=== PATIENT | female | born 1985 | race Hispanic/Latino ===

== ENCOUNTER 2019-02-19 15:08 | Inpatient (IN) | payer BC ==
--- NOTE | 2019-02-19 15:17 | Emergency Department Report ---
Blank Doc - Documentation Documentation: This is a 33-year-old female that presents with right upper abdominal pain with radiation to back. PCP sent patient to ED for further evaluation and was diagnosed with gallstones. This initial assessment/diagnostic orders/clinical plan/treatment(s) is/are subject to change based on patient's health status, clinical progression and re- assessment by fellow clinical providers in the ED. Further treatment and workup at subsequent clinical providers discretion. Patient/guardians urged not to elope from the ED as their condition may be serious if not clinically assessed and managed. Initial orders include: 1- Patient sent to MAIN ED for further evaluation and treatment 2- labs 3- UA
[2019-02-19 15:49] LABS: Basophils # (Auto) 0.1 K/mm3 (0.0-0.1); Basophils % (Auto) 0.5 % (0.0-1.8); Eosinophils # (Auto) 0.2 K/mm3 (0.0-0.4); Eosinophils % (Auto) 1.7 % (0.0-4.3); Hemoglobin 14.8 gm/dl (10.1-14.3); Lymphocytes # (Auto) 1.2 K/mm3 (1.2-5.4); Mean Corpuscular HGB Conc 35 % (30-34); Mean Corpuscular Volume 88 fl (79-97); Monocytes # (Auto) 0.8 K/mm3 (0.0-0.8); Monocytes % (Auto) 7.9 % (0.0-7.3); Platelet Count 329 K/mm3 (140-440); Red Blood Count 4.75 M/mm3 (3.65-5.03); Red Cell Distribution Width 12.9 % (13.2-15.2)
[2019-02-19 15:53] LABS: Alanine Aminotransferase 432 units/L (7-56); Albumin 4.5 g/dL (3.9-5); BUN/Creatinine Ratio 14; Bilirubin,Direct 4.7 mg/dL (0-0.2); Blood Urea Nitrogen 10 mg/dL (7-17); Calcium 9.3 mg/dL (8.4-10.2); Hemolysis Index 4
[2019-02-19] MEDS ORDERED: MORPHINE IV ONE (16:41)
[2019-02-19] MEDS ORDERED: ZOFRAN IV ONE (16:41)
[2019-02-19] MEDS ORDERED: NACL 0.9% 1000 ML 1,000 ML IV ONE (16:41)
[2019-02-19] MEDS ORDERED: ZOSYN/NS 4.5GM/100ML 4.5 GM/100 ML VIAL IV ONE (16:53)
--- NOTE | 2019-02-19 16:56 | Emergency Department Report ---
ED General Adult HPI - General Chief complaint: Abdominal Pain Stated complaint: GALLSTONES/GALLBLADDER Time Seen by Provider: 02/19/19 15:15 Source: patient Mode of arrival: Ambulatory Limitations: No Limitations - History of Present Illness Initial comments: Patient presents to the emergency department with a chief complaint of right upper quadrant abdominal pain with outpatient ultrasound showing acute cholecystitis and a dilated common bile duct. Patient states her pain initially started approximately 2 weeks ago and she went to another hospital where she was worked up for chest pain and discharged home. She followed up with her primary care physician which resulted in the ultrasound today. -: Sudden Location: abdomen Radiation: back Severity scale (0 -10): 8 Quality: sharp Consistency: constant Improves with: none Worsens with: none Associated Symptoms: denies other symptoms (a call) Treatments Prior to Arrival: none ( to light.) - Related Data Allergies Allergy/AdvReac Type Severity Reaction Status Date / Time No Known Allergies Allergy Unverified 02/19/19 16:49 ED Review of Systems ROS: Stated complaint: GALLSTONES/GALLBLADDER Other details as noted in HPI Comment: All other systems reviewed and negative Constitutional: denies: chills, fever Eyes: denies: eye pain, eye discharge, vision change ENT: denies: ear pain, throat pain Respiratory: denies: cough, shortness of breath, wheezing Cardiovascular: denies: chest pain, palpitations Endocrine: no symptoms reported Gastrointestinal: abdominal pain. denies: nausea, diarrhea Genitourinary: denies: urgency, dysuria, discharge Musculoskeletal: denies: back pain, joint swelling, arthralgia Skin: denies: rash, lesions Neurological: denies: headache, weakness, paresthesias Psychiatric: denies: anxiety, depression Hematological/Lymphatic: denies: easy bleeding, easy bruising ED Past Medical Hx - Social History Smoking Status: Never Smoker Substance Use Type: None ED Physical Exam - General Limitations: No Limitations General appearance: alert, in no apparent distress - Head Head exam: Present: atraumatic, normocephalic - Eye Eye exam: Present: normal appearance, PERRL, EOMI - ENT ENT exam: Present: mucous membranes moist - Neck Neck exam: Present: normal inspection - Respiratory Respiratory exam: Present: normal lung sounds bilaterally. Absent: respiratory distress, wheezes, rales - Cardiovascular Cardiovascular Exam: Present: regular rate, normal rhythm. Absent: systolic murmur, diastolic murmur, rubs, gallop - GI/Abdominal GI/Abdominal exam: Present: soft, tenderness (TTP RUQ), normal bowel sounds. Absent: distended - Extremities Exam Extremities exam: Present: normal inspection - Back Exam Back exam: Present: normal inspection - Neurological Exam Neurological exam: Present: alert, oriented X3, CN II-XII intact. Absent: motor sensory deficit - Psychiatric Psychiatric exam: Present: normal affect, normal mood - Skin Skin exam: Present: warm, dry, intact, normal color. Absent: rash ED Course Vital Signs 02/19/19 02/19/19 15:15 17:22 Temperature 98.1 F Pulse Rate 93 H 88 Respiratory 18 18 Rate Blood Pressure 137/87 Blood Pressure 141/91 [Left] O2 Sat by Pulse 98 99 Oximetry ED Medical Decision Making - Lab Data Result diagrams: 02/19/19 15:24 02/19/19 15:24 Lab Results 02/19/19 02/19/19 02/19/19 Range/Units 15:24 15:24 15:24 WBC 10.3 (4.5-11.0) K/mm3 RBC 4.75 (3.65-5.03) M/mm3 Hgb 14.8 H (10.1-14.3) gm/dl Hct 42.0 (30.3-42.9) % MCV 88 (79-97) fl MCH 31 (28-32) pg MCHC 35 H (30-34) % RDW 12.9 L (13.2-15.2) % Plt Count 329 (140-440) K/mm3 Lymph % (Auto) 12.0 L (13.4-35.0) % [place] % (Auto) 7.9 H (0.0-7.3) % Eos % (Auto) 1.7 (0.0-4.3) % Baso % (Auto) 0.5 (0.0-1.8) % Lymph # 1.2 (1.2-5.4) K/mm3 [place] # 0.8 (0.0-0.8) K/mm3 Eos # 0.2 (0.0-0.4) K/mm3 Baso # 0.1 (0.0-0.1) K/mm3 Seg Neutrophils % 77.9 H (40.0-70.0) % Seg Neutrophils # 8.0 H (1.8-7.7) K/mm3 Sodium 138 (137-145) mmol/L Potassium 3.9 (3.6-5.0) mmol/L Chloride 100.2 (98-107) mmol/L Carbon Dioxide 23 (22-30) mmol/L Anion Gap 19 mmol/L BUN 10 (7-17) mg/dL Creatinine 0.7 (0.7-1.2) mg/dL Estimated GFR > 60 ml/min BUN/Creatinine Ratio 14 % Glucose 131 H (65-100) mg/dL Calcium 9.3 (8.4-10.2) mg/dL Total Bilirubin 5.80 H (0.1-1.2) mg/dL Direct Bilirubin 4.7 H (0-0.2) mg/dL Indirect Bilirubin 1.1 mg/dL AST 177 H (5-40) units/L ALT 432 H (7-56) units/L Alkaline Phosphatase 252 H (35-129) units/L Total Protein 7.9 (6.3-8.2) g/dL Albumin 4.5 (3.9-5) g/dL Albumin/Globulin Ratio 1.3 % Lipase 36 (13-60) units/L HCG, Qual Negative (Negative) - Radiology Data Radiology results: report reviewed - Medical Decision Making Received ultrasound result from [facility] and this shows acute cholecystitis and dilatation of the common bile duct Results discussed with patient Critical Care Time: Yes Critical care time in (mins) excluding proc time.: 35 Critical care attestation.: If time is entered above; I have spent that time in minutes in the direct care of this critically ill patient, excluding procedure time. ED Disposition Clinical Impression: Cholecystitis, Common bile duct dilatation Disposition: OP ADMIT IP TO THIS HOSP Is pt being admited?: Yes Does the pt Need Aspirin: No Condition: Fair Referrals: ANSHUL MICHAUD MD [Primary Care Provider] - 3-5 Days
[2019-02-19] MEDS ORDERED: SODIUM CHLORIDE FLUSH SYRINGE 10 ML IV PRN (20:09)
--- NOTE | 2019-02-19 20:10 | Consultation ---
History of Present Illness Consult date: 02/19/19 Reason for consult: gallstones - History of present illness History of present illness: 33 yo female with 12 day h/o epigastric pain radiating to the right shoulder associated with nausea and vomiting but no hematemesis, melena or hematochezia. Yesterday, she began noticing scleral icterus and has not been able to keep anything down. Her urine has been dark for 4 days. She denies prior abominal surgery, fever or chills. Medications and Allergies Allergies Allergy/AdvReac Type Severity Reaction Status Date / Time No Known Allergies Allergy Unverified 02/19/19 16:49 Home Medications Medication Instructions Recorded Confirmed Last Taken Type No Known Home Medications [No 02/19/19 02/19/19 Unknown History Reported Home Medications] Review of Systems All systems: negative (none) Exam Vital Signs Temp Pulse Resp BP Pulse Ox 98.1 F 93 H 18 137/87 98 02/19/19 15:15 02/19/19 15:15 02/19/19 15:15 02/19/19 15:15 02/19/19 15:15 - General physical appearance Positive: well developed, well nourished, no distress - Eyes Positive: PERRL, normal occular movement - ENT Positive: normal pinna, normal nares, normal mucosa, no hearing loss, no conge stion - Neck Positive: no masses, no bruits, trachea midline, no venous distension - Respiratory Positive: normal expansion, normal respiratory effort, clear to auscultation - Cardiovascular Rhythm: regular Heart Sounds: Present: S1 & S2. Absent: rub, click - Extremities Extremities: no ischemia, pulses symmetrical, No edema - Breasts Breasts: deferred - Abdomen Abdomen: Present: soft (Mild RUQ tenderness without rebound or guarding. No masses, HSM or hernias.) - Genitourinary Female Genitourinary: deferred - Integumentary no rash, no growths, no abnormal pigmentation - Neurologic Neurologic: alert and oriented to time, place and person, motor strength and sensation are grossly intact - Musculoskeletal normal gait, normal posture - Psychiatric Psychiatric: appropriate mood/affect, intact judgment & insight Results - Labs 02/19/19 15:24 02/19/19 15:24 Abnormal lab results 02/19/19 02/19/19 Range/Units 15:24 15:24 Hgb 14.8 H (10.1-14.3) gm/dl MCHC 35 H (30-34) % RDW 12.9 L (13.2-15.2) % Lymph % (Auto) 12.0 L (13.4-35.0) % [place] % (Auto) 7.9 H (0.0-7.3) % Seg Neutrophils % 77.9 H (40.0-70.0) % Seg Neutrophils # 8.0 H (1.8-7.7) K/mm3 Glucose 131 H (65-100) mg/dL Total Bilirubin 5.80 H (0.1-1.2) mg/dL Direct Bilirubin 4.7 H (0-0.2) mg/dL AST 177 H (5-40) units/L ALT 432 H (7-56) units/L Alkaline Phosphatase 252 H (35-129) units/L Diabetes panel 02/19/19 Range/Units 15:24 Sodium 138 (137-145) mmol/L Potassium 3.9 (3.6-5.0) mmol/L Chloride 100.2 (98-107) mmol/L Carbon Dioxide 23 (22-30) mmol/L BUN 10 (7-17) mg/dL Creatinine 0.7 (0.7-1.2) mg/dL Glucose 131 H (65-100) mg/dL Calcium 9.3 (8.4-10.2) mg/dL AST 177 H (5-40) units/L ALT 432 H (7-56) units/L Alkaline Phosphatase 252 H (35-129) units/L Total Protein 7.9 (6.3-8.2) g/dL Albumin 4.5 (3.9-5) g/dL Calcium panel 02/19/19 Range/Units 15:24 Calcium 9.3 (8.4-10.2) mg/dL Albumin 4.5 (3.9-5) g/dL Pituitary panel 02/19/19 Range/Units 15:24 Sodium 138 (137-145) mmol/L Potassium 3.9 (3.6-5.0) mmol/L Chloride 100.2 (98-107) mmol/L Carbon Dioxide 23 (22-30) mmol/L BUN 10 (7-17) mg/dL Creatinine 0.7 (0.7-1.2) mg/dL Glucose 131 H (65-100) mg/dL Calcium 9.3 (8.4-10.2) mg/dL Adrenal panel 02/19/19 Range/Units 15:24 Sodium 138 (137-145) mmol/L Potassium 3.9 (3.6-5.0) mmol/L Chloride 100.2 (98-107) mmol/L Carbon Dioxide 23 (22-30) mmol/L BUN 10 (7-17) mg/dL Creatinine 0.7 (0.7-1.2) mg/dL Glucose 131 H (65-100) mg/dL Calcium 9.3 (8.4-10.2) mg/dL Total Bilirubin 5.80 H (0.1-1.2) mg/dL AST 177 H (5-40) units/L ALT 432 H (7-56) units/L Alkaline Phosphatase 252 H (35-129) units/L Total Protein 7.9 (6.3-8.2) g/dL Albumin 4.5 (3.9-5) g/dL - Imaging Additional studies: RUQ US today revealed: Gallbladder wall thickening with multiple gallstones and a 10 mm CBD. See CMP of today. CMP on 02/10/19 revealed: ALT 36, AST 18, T bili 0.4; LFT on 02/18/19 revealed: Alk phos 244, ALT 551, AST 433, D bili 3.59, T bili 4.8 Assessment and Plan - Patient Problems (1) Cholecystitis Current Visit: Yes Status: Acute Plan to address problem: 1) NPO 2) IV Zosyn 3) MRCP tomorrow 4) GI consult re probable choledocholithiasis 5) SCD 6) Prophylactic Lovenox/Heparin 7) IVF
--- NOTE | 2019-02-19 20:13 | History and Physical Report ---
History of Present Illness Date of examination: 02/19/19 Medications and Allergies Allergies Allergy/AdvReac Type Severity Reaction Status Date / Time No Known Allergies Allergy Unverified 02/19/19 16:49 Home Medications Medication Instructions Recorded Confirmed Last Taken Type No Known Home Medications [No 02/19/19 02/19/19 Unknown History Reported Home Medications] Exam - Constitutional Vitals: Temp Pulse Resp BP Pulse Ox 98.2 F 84 22 125/79 98 02/19/19 19:43 02/19/19 19:43 02/19/19 19:43 02/19/19 19:43 02/19/19 19:43 Results - Labs CBC & Chem 7: 02/19/19 15:24 02/19/19 15:24 Labs: Laboratory Last Values WBC 10.3 K/mm3 (4.5-11.0) 02/19/19 15:24 RBC 4.75 M/mm3 (3.65-5.03) 02/19/19 15:24 Hgb 14.8 gm/dl (10.1-14.3) H 02/19/19 15:24 Hct 42.0 % (30.3-42.9) 02/19/19 15:24 MCV 88 fl (79-97) 02/19/19 15:24 MCH 31 pg (28-32) 02/19/19 15:24 MCHC 35 % (30-34) H 02/19/19 15:24 RDW 12.9 % (13.2-15.2) L 02/19/19 15:24 Plt Count 329 K/mm3 (140-440) 02/19/19 15:24 Lymph % (Auto) 12.0 % (13.4-35.0) L 02/19/19 15:24 [place] % (Auto) 7.9 % (0.0-7.3) H 02/19/19 15:24 Eos % (Auto) 1.7 % (0.0-4.3) 02/19/19 15:24 Baso % (Auto) 0.5 % (0.0-1.8) 02/19/19 15:24 Lymph # 1.2 K/mm3 (1.2-5.4) 02/19/19 15:24 [place] # 0.8 K/mm3 (0.0-0.8) 02/19/19 15:24 Eos # 0.2 K/mm3 (0.0-0.4) 02/19/19 15:24 Baso # 0.1 K/mm3 (0.0-0.1) 02/19/19 15:24 Seg Neutrophils % 77.9 % (40.0-70.0) H 02/19/19 15:24 Seg Neutrophils # 8.0 K/mm3 (1.8-7.7) H 02/19/19 15:24 Sodium 138 mmol/L (137-145) 02/19/19 15:24 Potassium 3.9 mmol/L (3.6-5.0) 02/19/19 15:24 Chloride 100.2 mmol/L (98-107) 02/19/19 15:24 Carbon Dioxide 23 mmol/L (22-30) 02/19/19 15:24 19 mmol/L 02/19/19 15:24 BUN 10 mg/dL (7-17) 02/19/19 15:24 0.7 mg/dL (0.7-1.2) 02/19/19 15:24 Estimated GFR > 60 ml/min 02/19/19 15:24 14 % 02/19/19 15:24 Glucose 131 mg/dL (65-100) H 02/19/19 15:24 Calcium 9.3 mg/dL (8.4-10.2) 02/19/19 15:24 5.80 mg/dL (0.1-1.2) H 02/19/19 15:24 4.7 mg/dL (0-0.2) H 02/19/19 15:24 1.1 mg/dL 02/19/19 15:24 AST 177 units/L (5-40) H 02/19/19 15:24 ALT 432 units/L (7-56) H 02/19/19 15:24 252 units/L (35-129) H 02/19/19 15:24 7.9 g/dL (6.3-8.2) 02/19/19 15:24 4.5 g/dL (3.9-5) 02/19/19 15:24 1.3 % 02/19/19 15:24 36 units/L (13-60) 02/19/19 15:24 HCG, Qual Negative (Negative) 02/19/19 15:24
[2019-02-19] MEDS: D5NS 1,000 ML IV SCH (20:39)
[2019-02-19] MEDS ORDERED: TYLENOL PO PRN (21:00)
[2019-02-19] MEDS: ZOSYN/NS 4.5GM/100ML 4.5 GM/100 ML VIAL IV SCH (22:14)
[2019-02-19] MEDS: DILAUDID IV PRN (22:17)
[2019-02-19] MEDS: PEPCID IV SCH (22:17)
[2019-02-19] MEDS: ZOFRAN IV PRN (22:17)
[2019-02-19] MEDS: SODIUM CHLORIDE FLUSH SYRINGE 10 ML IV SCH (22:24)
[2019-02-20 05:01] LABS: Basophils % (Auto) 0.4 % (0.0-1.8); Eosinophils # (Auto) 0.3 K/mm3 (0.0-0.4); Eosinophils % (Auto) 3.1 % (0.0-4.3); Hematocrit 36.5 % (30.3-42.9); Hemoglobin 12.7 gm/dl (10.1-14.3); Lymphocytes # (Auto) 1.5 K/mm3 (1.2-5.4); Lymphocytes % (Auto) 19.2 % (13.4-35.0); Mean Corpuscular HGB Conc 35 % (30-34); Mean Corpuscular Volume 89 fl (79-97); Monocytes # (Auto) 0.8 K/mm3 (0.0-0.8); Monocytes % (Auto) 9.4 % (0.0-7.3); Platelet Count 242 K/mm3 (140-440); Red Blood Count 4.09 M/mm3 (3.65-5.03); Red Cell Distribution Width 13.1 % (13.2-15.2)
[2019-02-20] MEDS: ZOFRAN IV PRN ×3 (05:04→17:37)
[2019-02-20] MEDS: DILAUDID IV PRN ×5 (05:04→21:58)
[2019-02-20] MEDS: ZOSYN/NS 4.5GM/100ML 4.5 GM/100 ML VIAL IV SCH ×3 (05:08→21:53)
[2019-02-20 05:20] LABS: Alanine Aminotransferase 304 units/L (7-56); Albumin 3.7 g/dL (3.9-5); BUN/Creatinine Ratio 16; Blood Urea Nitrogen 11 mg/dL (7-17); Calcium 8.3 mg/dL (8.4-10.2); Hemolysis Index 2
[2019-02-20 05:35] LABS: Bilirubin,Urine NEG (Negative); Blood,Urine NEG (Negative); Color,Urine Amber (Yellow); Mucus,Urine FEW /HPF; Protein,Urine <15 mg/dL mg/dL (Negative); Urobilinogen,Urine < 2.0 mg/dL (<2.0)
--- NOTE | 2019-02-20 06:45 | Event Note ---
Date: 02/19/19 See H/p inreports Acute Cholecystitis MRCP pending
--- NOTE | 2019-02-20 07:13 | History and Physical Report ---
CHIEF COMPLAINT: Right upper quadrant pain with radiation to the right shoulder for the last 2 weeks. HISTORY OF PRESENT ILLNESS: A 33-year-old female, presents with recurrent right upper quadrant and epigastric pain associated with nausea and vomiting for the last 2 weeks, intermittent in nature. Pain is sharp when it happens and is 10/10, severe pain. The patient also feels that her urine has been dark. No fever or chills. No significant past medical history. PAST MEDICAL HISTORY: None. PAST SURGICAL HISTORY: None. FAMILY HISTORY: Hypertension. SOCIAL HISTORY: Does not smoke. No alcohol, no recreational drugs. REVIEW OF SYSTEMS: Significant for right upper quadrant pain and radiation to the right shoulder and also associated with nausea and vomiting, going on for 2 weeks. Otherwise, review of systems negative. A 14-point review of systems done. PHYSICAL EXAMINATION: GENERAL: Young female, cooperative during examination, not in any distress at this point of time. VITAL SIGNS: Temperature 98.2, pulse is 88, respirations are 18, blood pressure 141/91. HEENT: Unremarkable. Pupils equal and reactive. NECK: Supple, no lymphadenopathy, no thyromegaly. LUNGS: Clear to auscultation and percussion. Good air entry. CARDIOVASCULAR SYSTEM: S1, S2 heard. No gallop, no murmur, no rub. Apical impulse in left fifth intercostal space in midclavicular line. ABDOMEN: Soft and benign. Tenderness present in the right upper quadrant region. Guarding present. Bowel sounds are normal. EXTREMITIES: Good pedal pulses. No pedal edema. CENTRAL NERVOUS SYSTEM: Alert and oriented x 4, nonfocal exam. LABORATORY DATA: Significant for white count of 10,300, H and H of 14.8 and 42.0, platelet count is 329,000. Electrolytes are normal. Glucose is 131, slightly high. Hemoglobin A1c is 5.6, total bilirubin is 5.8, direct bilirubin is 4.7. AST and ALT is 177 and 432 respectively, alk phos is 258. Urine is normal. DIAGNOSTIC DATA: MRCP is pending. ASSESSMENT AND PLAN: 1. Acute cholecystitis. The patient initiated on IV Zosyn and IV fluids. Surgical consult requested. The patient for cholecystectomy in the morning. 2. Transaminitis secondary to gallstone-induced hepatitis. 3. Hyperbilirubinemia, possible bile duct obstruction. MRCP is pending. 4. Deep venous thrombosis prophylaxis, Lovenox 40 mg subcutaneous daily, but will defer to Surgery regarding sequential compression devices and discontinuation of Lovenox. 5. Gastrointestinal prophylaxis initiated. JOB# [id number] SAL/NTS
--- NOTE | 2019-02-20 09:51 | Magnetic Resonance Report ---
MR ABDOMEN MRCP HISTORY: Dilated common bile duct. COMPARISON: None. TECHNIQUE: Multiple T1 and T2-weighted images. Thin and thick slab MRCP images. Radial MRCP images. FINDINGS: There are too many to count small gallstones in the gallbladder. There is no evidence for gallbladder dilatation or inflammation. The common bile duct is dilated up to 1 cm in diameter. A 5 mm filling defect consistent with a stone is identified in the distal common bile duct near the ampulla. The pancreatic duct is normal. There are numerous bilateral renal cysts. Most of the cysts are millimetric in size. No evidence for obvious mass or hydronephrosis. The signal characteristics of the liver, pancreas, spleen, adrenal glands, aorta and visualized bowel loops are unremarkable. No evidence for ascites, acute inflammation or adenopathy. IMPRESSION: Cholelithiasis. Choledocholithiasis, mildly obstructing. Numerous renal cysts.
[2019-02-20] MEDS: PEPCID IV SCH ×2 (10:05→21:52)
[2019-02-20] MEDS: SODIUM CHLORIDE FLUSH SYRINGE 10 ML IV SCH ×2 (10:10→22:03)
[2019-02-20] MEDS ORDERED: LACTATED RINGERS 1,000 ML IV SCH (11:38)
--- NOTE | 2019-02-20 11:47 | Progress Note ---
Assessment and Plan - Patient Problems (1) Cholecystitis Current Visit: Yes Status: Acute Plan to address problem: 1) GI consult 2) ERCP with stone extraction 3) Lap whitney after ERCP 4) Pt seen with Dr. Howell who will assume care beginning tomorrow. Subjective Date of service: 02/20/19 Patient Reports: Positive: no new complaints, feels better Objective Vital Signs - 12hr 02/20/19 02/20/19 02/20/19 07:42 07:43 08:00 Temperature 98.5 F 98.5 F Pulse Rate 68 69 74 Pulse Rate [ Apical] Respiratory 18 18 Rate Blood Pressure 121/75 Blood Pressure 121/75 [Left] O2 Sat by Pulse 95 97 Oximetry 02/20/19 09:04 Temperature Pulse Rate Pulse Rate [ 75 Apical] Respiratory Rate Blood Pressure Blood Pressure [Left] O2 Sat by Pulse Oximetry - Abdomen soft (Mild RUQ tenderness without rebound or guarding) - Labs 02/20/19 04:15 02/20/19 04:15 Diabetes panel 02/19/19 02/19/19 02/20/19 Range/Units 15:24 20:24 04:15 Sodium 138 140 (137-145) mmol/L Potassium 3.9 3.6 (3.6-5.0) mmol/L Chloride 100.2 105.1 (98-107) mmol/L Carbon Dioxide 23 21 L (22-30) mmol/L BUN 10 11 (7-17) mg/dL Creatinine 0.7 0.7 (0.7-1.2) mg/dL Glucose 131 H 140 H (65-100) mg/dL Hemoglobin A1c 5.6 (4-6) % Calcium 9.3 8.3 L (8.4-10.2) mg/dL AST 177 H 96 H (5-40) units/L ALT 432 H 304 H (7-56) units/L Alkaline Phosphatase 252 H 196 H (35-129) units/L Total Protein 7.9 6.6 (6.3-8.2) g/dL Albumin 4.5 3.7 L (3.9-5) g/dL Calcium panel 02/19/19 02/20/19 Range/Units 15:24 04:15 Calcium 9.3 8.3 L (8.4-10.2) mg/dL Albumin 4.5 3.7 L (3.9-5) g/dL Pituitary panel 02/19/19 02/20/19 Range/Units 15:24 04:15 Sodium 138 140 (137-145) mmol/L Potassium 3.9 3.6 (3.6-5.0) mmol/L Chloride 100.2 105.1 (98-107) mmol/L Carbon Dioxide 23 21 L (22-30) mmol/L BUN 10 11 (7-17) mg/dL Creatinine 0.7 0.7 (0.7-1.2) mg/dL Glucose 131 H 140 H (65-100) mg/dL Calcium 9.3 8.3 L (8.4-10.2) mg/dL Adrenal panel 02/19/19 02/20/19 Range/Units 15:24 04:15 Sodium 138 140 (137-145) mmol/L Potassium 3.9 3.6 (3.6-5.0) mmol/L Chloride 100.2 105.1 (98-107) mmol/L Carbon Dioxide 23 21 L (22-30) mmol/L BUN 10 11 (7-17) mg/dL Creatinine 0.7 0.7 (0.7-1.2) mg/dL Glucose 131 H 140 H (65-100) mg/dL Calcium 9.3 8.3 L (8.4-10.2) mg/dL Total Bilirubin 5.80 H 1.90 H (0.1-1.2) mg/dL AST 177 H 96 H (5-40) units/L ALT 432 H 304 H (7-56) units/L Alkaline Phosphatase 252 H 196 H (35-129) units/L Total Protein 7.9 6.6 (6.3-8.2) g/dL Albumin 4.5 3.7 L (3.9-5) g/dL - Imaging Additional Studies: LFT improved (T bili down to 1.9) but MRCP shows a 5 mm distal CBD stone.
--- NOTE | 2019-02-20 13:17 | Progress Note ---
Assessment and Plan Assessment and plan: Acute cholecystitis Cont Zosyn GI to see Surgeon following Obesity. I counseled on diet and exercise Full code status History Interval history: RUQ abd pain Hospitalist Physical - Physical exam Narrative exam: Gen: Not in acute distress, lying in bed, HEENT: Normocephalic, atraumatic Neck: supple, no JVD Heart: S1 and S2 reg, no murmurs, rubs or gallop Lungs: Clear, no crackles, no wheeze Abd: soft, tender RUQ, no rebound, non distended, normal BS Ext: No edema, no clubbing, no cyanosis, Neuro: Awake,alert, oriented x 3, moves all ext, non focal Psych:Normal mood - Constitutional Vitals: Temp Pulse Resp BP Pulse Ox 99.4 F 63 18 140/79 97 02/20/19 12:00 02/20/19 12:00 02/20/19 12:00 02/20/19 12:00 02/20/19 11:38 Results - Labs CBC & Chem 7: 02/20/19 04:15 02/20/19 04:15 Labs: Laboratory Last Values WBC 8.0 K/mm3 (4.5-11.0) 02/20/19 04:15 RBC 4.09 M/mm3 (3.65-5.03) 02/20/19 04:15 Hgb 12.7 gm/dl (10.1-14.3) 02/20/19 04:15 Hct 36.5 % (30.3-42.9) 02/20/19 04:15 MCV 89 fl (79-97) 02/20/19 04:15 MCH 31 pg (28-32) 02/20/19 04:15 MCHC 35 % (30-34) H 02/20/19 04:15 RDW 13.1 % (13.2-15.2) L 02/20/19 04:15 Plt Count 242 K/mm3 (140-440) 02/20/19 04:15 Lymph % (Auto) 19.2 % (13.4-35.0) 02/20/19 04:15 [place] % (Auto) 9.4 % (0.0-7.3) H 02/20/19 04:15 Eos % (Auto) 3.1 % (0.0-4.3) 02/20/19 04:15 Baso % (Auto) 0.4 % (0.0-1.8) 02/20/19 04:15 Lymph # 1.5 K/mm3 (1.2-5.4) 02/20/19 04:15 [place] # 0.8 K/mm3 (0.0-0.8) 02/20/19 04:15 Eos # 0.3 K/mm3 (0.0-0.4) 02/20/19 04:15 Baso # 0.0 K/mm3 (0.0-0.1) 02/20/19 04:15 Seg Neutrophils % 67.9 % (40.0-70.0) 02/20/19 04:15 Seg Neutrophils # 5.5 K/mm3 (1.8-7.7) 02/20/19 04:15 Sodium 140 mmol/L (137-145) 02/20/19 04:15 Potassium 3.6 mmol/L (3.6-5.0) 02/20/19 04:15 Chloride 105.1 mmol/L (98-107) 02/20/19 04:15 Carbon Dioxide 21 mmol/L (22-30) L 02/20/19 04:15 18 mmol/L 02/20/19 04:15 BUN 11 mg/dL (7-17) 02/20/19 04:15 0.7 mg/dL (0.7-1.2) 02/20/19 04:15 Estimated GFR > 60 ml/min 02/20/19 04:15 16 % 02/20/19 04:15 Glucose 140 mg/dL (65-100) H 02/20/19 04:15 5.6 % (4-6) 02/19/19 20:24 Calcium 8.3 mg/dL (8.4-10.2) L 02/20/19 04:15 1.90 mg/dL (0.1-1.2) H 02/20/19 04:15 4.7 mg/dL (0-0.2) H 02/19/19 15:24 1.1 mg/dL 02/19/19 15:24 AST 96 units/L (5-40) H 02/20/19 04:15 ALT 304 units/L (7-56) H 02/20/19 04:15 196 units/L (35-129) H 02/20/19 04:15 6.6 g/dL (6.3-8.2) 02/20/19 04:15 3.7 g/dL (3.9-5) L 02/20/19 04:15 1.3 % 02/20/19 04:15 36 units/L (13-60) 02/19/19 15:24 HCG, Qual Negative (Negative) 02/19/19 15:24 [place] (Yellow) 02/20/19 05:10 Clear (Clear) 02/20/19 05:10 5.0 (5.0-7.0) 02/20/19 05:10 Ur Specific [place] 1.016 (1.003-1.030) 02/20/19 05:10 <15 mg/dl mg/dL (Negative) 02/20/19 05:10 Neg mg/dL (Negative) 02/20/19 05:10 20 mg/dL (Negative) 02/20/19 05:10 Neg (Negative) 02/20/19 05:10 Neg (Negative) 02/20/19 05:10 Neg (Negative) 02/20/19 05:10 < 2.0 mg/dL (<2.0) 02/20/19 05:10 Ur Leukocyte Esterase Neg (Negative) 02/20/19 05:10 1.0 /HPF (0.0-6.0) 02/20/19 05:10 2.0 /HPF (0.0-6.0) 02/20/19 05:10 U Epithel Cells (Auto) 6.0 /HPF (0-13.0) 02/20/19 05:10 Few /HPF 02/20/19 05:10 Active Medications - Current Medications Current Medications: Generic Name Dose Route Start Last Admin Trade Name Freq PRN Reason Stop Dose Admin Acetaminophen 650 mg 02/19/19 21:00 Tylenol PO Q4H PRN Pain MILD(1-3)/Fever >100.5/FERGUSON Enoxaparin Sodium 40 mg 02/20/19 10:00 Lovenox SUB-Q QDAY LAYLA Famotidine 20 mg 02/19/19 22:00 02/20/19 10:05 Pepcid IV 20 mg BID LAYLA Administration Hydromorphone HCl 0.5 mg 02/19/19 21:00 02/20/19 10:05 Dilaudid IV 0.5 mg Q3H PRN Administration Pain , Severe (7-10) Dextrose/Sodium Chloride 1,000 mls @ 100 mls/hr 02/19/19 21:00 02/19/19 20:39 D5ns IV 100 mls/hr DIRECT LAYLA Administration Piperacillin Sod/Tazobactam Sod 4.5 gm in 100 mls @ 200 mls/hr 02/19/19 22:00 02/20/19 05:08 Zosyn/Ns 4.5gm/100ml IV 200 mls/hr Q8HR LAYLA Administration Protocol Metoclopramide HCl 10 mg 02/19/19 20:09 Reglan IV Q6H PRN Nausea And Vomiting Ondansetron HCl 4 mg 02/19/19 21:00 02/20/19 05:06 Zofran IV 4 mg Q3H PRN Administration Nausea And Vomiting Sodium Chloride 10 ml 02/19/19 22:00 02/20/19 10:10 Sodium Chloride Flush Syringe 10 Ml IV 10 ml BID LAYLA Administration Sodium Chloride 10 ml 02/19/19 20:09 Sodium Chloride Flush Syringe 10 Ml IV PRN PRN LINE FLUSH
[2019-02-20] MEDS: LOVENOX SUB-Q SCH (17:34)
[2019-02-20] MEDS: D5NS 1,000 ML IV SCH (20:40)
[2019-02-20] MEDS: REGLAN IV PRN (20:45)
[2019-02-21] MEDS: DILAUDID IV PRN ×5 (01:26→19:37)
[2019-02-21] MEDS: ZOSYN/NS 4.5GM/100ML 4.5 GM/100 ML VIAL IV SCH ×3 (05:27→22:42)
[2019-02-21] MEDS: D5NS 1,000 ML IV SCH ×2 (05:35→19:27)
--- NOTE | 2019-02-21 06:07 | Consultation ---
REFERRING PHYSICIAN: Lane Rivas MD INDICATIONS: 1. Abdominal pain. 2. Choledocholithiasis. HISTORY OF PRESENT ILLNESS: The patient is a 33-year-old white female, presents with 2 weeks of right upper quadrant pain. The patient reports nausea, vomiting with eating. She reports some upper sharp abdominal pain. She reports no lower GI symptoms including diarrhea, constipation or rectal bleeding. Denies any weight loss. Denies any NSAIDs or aspirin. The patient subsequently reports that she came to the Emergency Room and had ultrasound. This raised the possibility of common bile duct stone. She subsequently had an MRCP, which showed choledocholithiasis. The patient's ultrasound showed gallstones. The patient subsequently was admitted and GI consulted. Denies any other specific complaints. PAST MEDICAL HISTORY: Negative. PAST SURGICAL HISTORY: None. ALLERGIES: No known drug allergies. MEDICATIONS: Reviewed and in chart. SOCIAL HISTORY: Denies alcohol, tobacco or drug abuse. FAMILY HISTORY: Negative for colon cancer, IBD or liver disease. REVIEW OF SYSTEMS: GENERAL: Reports mild weakness. HEENT: No visual complaints or tinnitus. PULMONARY: No shortness of breath, cough or chest pain. GASTROINTESTINAL: Reports abdominal pain, nausea, vomiting. All points of 13-point review of systems otherwise negative. PHYSICAL EXAMINATION: VITAL SIGNS: Temperature of 97.8, pulse 65, respiration 18, blood pressure 134/80. GENERAL: Obese white female, in no acute distress. HEENT: Pupils equal, round and reactive. PULMONARY: Clear to auscultation bilaterally. CARDIOVASCULAR: Regular rate and rhythm. Normal S1, S2. ABDOMEN: Soft, nontender, nondistended, mild right upper quadrant. No guarding, no rebound. SKIN: No obvious rashes. LABORATORY DATA: Pertinent for white count of 8.0, hemoglobin and hematocrit of 12.7 and 36.5, platelet count 242. Chem-7 within normal limits. Total bilirubin of 8.3, AST and ALT of 96 and 304, alkaline phosphatase of 192. DIAGNOSTIC DATA: MRCP showed dilated common bile duct and choledocholithiasis as well as gallstones. ASSESSMENT AND PLAN: A 33-year-old white female with no past medical history, who presents with 2-3 weeks of right upper quadrant pain, nausea and vomiting with eating with increased liver function tests and magnetic resonance cholangiopancreatography consistent with choledocholithiasis. PLAN: 1. We will review her MRI. 2. N.p.o. 3. Avoid NSAIDs and aspirin. 4. ERCP in a.m. JOB# [id number] [facility]/NTS
[2019-02-21] MEDS: ZOFRAN IV PRN (08:40)
[2019-02-21 08:42] LABS: Alanine Aminotransferase 255 units/L (7-56); Albumin 3.6 g/dL (3.9-5); BUN/Creatinine Ratio 13; Blood Urea Nitrogen 9 mg/dL (7-17); Calcium 8.4 mg/dL (8.4-10.2); Hemolysis Index 6
[2019-02-21] MEDS: LOVENOX SUB-Q SCH (10:16)
[2019-02-21] MEDS: PEPCID IV SCH ×2 (10:17→22:42)
[2019-02-21] MEDS: SODIUM CHLORIDE FLUSH SYRINGE 10 ML IV SCH ×2 (10:18→22:43)
--- NOTE | 2019-02-21 10:23 | Progress Note ---
Assessment and Plan Assessment and plan: Acute cholecystitis Cont Zosyn GI following. For ERCP today Surgeon following Obesity. I counseled on diet and exercise Full code status History Interval history: RUQ abd pain Hospitalist Physical - Physical exam Narrative exam: Gen: Not in acute distress, lying in bed, HEENT: Normocephalic, atraumatic Neck: supple, no JVD Heart: S1 and S2 reg, no murmurs, rubs or gallop Lungs: Clear, no crackles, no wheeze Abd: soft, tender RUQ, no rebound, non distended, normal BS Ext: No edema, no clubbing, no cyanosis, Neuro: Awake,alert, oriented x 3, moves all ext, non focal Psych:Normal mood - Constitutional Vitals: Temp Pulse Resp BP Pulse Ox 98.6 F 75 18 124/74 95 02/21/19 07:39 02/21/19 07:39 02/21/19 07:39 02/21/19 07:39 02/21/19 07:39 Results - Labs CBC & Chem 7: 02/20/19 04:15 02/21/19 08:06 Labs: Laboratory Last Values WBC 8.0 K/mm3 (4.5-11.0) 02/20/19 04:15 RBC 4.09 M/mm3 (3.65-5.03) 02/20/19 04:15 Hgb 12.7 gm/dl (10.1-14.3) 02/20/19 04:15 Hct 36.5 % (30.3-42.9) 02/20/19 04:15 MCV 89 fl (79-97) 02/20/19 04:15 MCH 31 pg (28-32) 02/20/19 04:15 MCHC 35 % (30-34) H 02/20/19 04:15 RDW 13.1 % (13.2-15.2) L 02/20/19 04:15 Plt Count 242 K/mm3 (140-440) 02/20/19 04:15 Lymph % (Auto) 19.2 % (13.4-35.0) 02/20/19 04:15 [place] % (Auto) 9.4 % (0.0-7.3) H 02/20/19 04:15 Eos % (Auto) 3.1 % (0.0-4.3) 02/20/19 04:15 Baso % (Auto) 0.4 % (0.0-1.8) 02/20/19 04:15 Lymph # 1.5 K/mm3 (1.2-5.4) 02/20/19 04:15 [place] # 0.8 K/mm3 (0.0-0.8) 02/20/19 04:15 Eos # 0.3 K/mm3 (0.0-0.4) 02/20/19 04:15 Baso # 0.0 K/mm3 (0.0-0.1) 02/20/19 04:15 Seg Neutrophils % 67.9 % (40.0-70.0) 02/20/19 04:15 Seg Neutrophils # 5.5 K/mm3 (1.8-7.7) 02/20/19 04:15 Sodium 137 mmol/L (137-145) 02/21/19 08:06 Potassium 3.6 mmol/L (3.6-5.0) 02/21/19 08:06 Chloride 103.2 mmol/L (98-107) 02/21/19 08:06 Carbon Dioxide 22 mmol/L (22-30) 02/21/19 08:06 15 mmol/L 02/21/19 08:06 BUN 9 mg/dL (7-17) 02/21/19 08:06 0.7 mg/dL (0.7-1.2) 02/21/19 08:06 Estimated GFR > 60 ml/min 02/21/19 08:06 13 % 02/21/19 08:06 Glucose 130 mg/dL (65-100) H 02/21/19 08:06 5.6 % (4-6) 02/19/19 20:24 Calcium 8.4 mg/dL (8.4-10.2) 02/21/19 08:06 4.70 mg/dL (0.1-1.2) H 02/21/19 08:06 4.7 mg/dL (0-0.2) H 02/19/19 15:24 1.1 mg/dL 02/19/19 15:24 AST 91 units/L (5-40) H 02/21/19 08:06 ALT 255 units/L (7-56) H 02/21/19 08:06 201 units/L (35-129) H 02/21/19 08:06 6.6 g/dL (6.3-8.2) 02/21/19 08:06 3.6 g/dL (3.9-5) L 02/21/19 08:06 1.2 % 02/21/19 08:06 36 units/L (13-60) 02/19/19 15:24 HCG, Qual Negative (Negative) 02/19/19 15:24 Rosalba (Yellow) 02/20/19 05:10 Clear (Clear) 02/20/19 05:10 5.0 (5.0-7.0) 02/20/19 05:10 Ur Specific [place] 1.016 (1.003-1.030) 02/20/19 05:10 <15 mg/dl mg/dL (Negative) 02/20/19 05:10 Neg mg/dL (Negative) 02/20/19 05:10 20 mg/dL (Negative) 02/20/19 05:10 Neg (Negative) 02/20/19 05:10 Neg (Negative) 02/20/19 05:10 Neg (Negative) 02/20/19 05:10 < 2.0 mg/dL (<2.0) 02/20/19 05:10 Ur Leukocyte Esterase Neg (Negative) 02/20/19 05:10 1.0 /HPF (0.0-6.0) 02/20/19 05:10 2.0 /HPF (0.0-6.0) 02/20/19 05:10 U Epithel Cells (Auto) 6.0 /HPF (0-13.0) 02/20/19 05:10 Few /HPF 02/20/19 05:10 Active Medications - Current Medications Current Medications: Generic Name Dose Route Start Last Admin Trade Name Freq PRN Reason Stop Dose Admin Acetaminophen 650 mg 02/19/19 21:00 Tylenol PO Q4H PRN Pain MILD(1-3)/Fever >100.5/FERGUSON Enoxaparin Sodium 40 mg 02/20/19 10:00 02/21/19 10:16 Lovenox SUB-Q 40 mg QDAY LAYLA Administration Famotidine 20 mg 02/19/19 22:00 02/21/19 10:17 Pepcid IV 20 mg BID LAYLA Administration Hydromorphone HCl 0.5 mg 02/19/19 21:00 02/21/19 08:38 Dilaudid IV 0.5 mg Q3H PRN Administration Pain , Severe (7-10) Dextrose/Sodium Chloride 1,000 mls @ 100 mls/hr 02/19/19 21:00 02/21/19 05:35 D5ns IV 100 mls/hr DIRECT LAYLA Administration Piperacillin Sod/Tazobactam Sod 4.5 gm in 100 mls @ 200 mls/hr 02/19/19 22:00 02/21/19 05:27 Zosyn/Ns 4.5gm/100ml IV 200 mls/hr Q8HR LAYLA Administration Protocol Metoclopramide HCl 10 mg 02/19/19 20:09 02/20/19 20:45 Reglan IV 10 mg Q6H PRN Administration Nausea And Vomiting Ondansetron HCl 4 mg 02/19/19 21:00 02/21/19 08:40 Zofran IV 4 mg Q3H PRN Administration Nausea And Vomiting Sodium Chloride 10 ml 02/19/19 22:00 02/21/19 10:18 Sodium Chloride Flush Syringe 10 Ml IV 10 ml BID LAYLA Administration Sodium Chloride 10 ml 02/19/19 20:09 Sodium Chloride Flush Syringe 10 Ml IV PRN PRN LINE FLUSH
[2019-02-21] MEDS ORDERED: WATER FOR IRRIG STERILE IR ONE (14:09)
--- NOTE | 2019-02-21 14:36 | Anesthesia Consultation ---
Anesthesia Consult and Med Hx Date of service: 02/21/19 - Airway Anesthetic Teeth Evaluation: Good ROM Head & Neck: Adequate Mental/Hyoid Distance: Adequate Mallampati Class: Class II Intubation Access Assessment: Probably Good - Pre-Operative Health Status ASA Pre-Surgery Classification: ASA2 Proposed Anesthetic Plan: MAC - Pulmonary Hx Asthma: No COPD: No Hx Pneumonia: No - Central Nervous System Hx Psychiatric Problems: No - Endocrine Hx End Stage Renal Disease: No Hx Liver Disease: Yes (gallbladder stones, cholecholithiasis) - Other Systems Hx Obesity: Yes (BMI 34.1)
--- NOTE | 2019-02-21 14:36 | Anesthesia Day of Surgery ---
Anesthesia Day of Surgery - Day of Surgery Patient Examined: Yes Patient H&P Reviewed: Yes Patient is NPO: Yes
[2019-02-21] MEDS: NACL 0.9% 1000 ML 1,000 ML IV SCH ×2 (14:57→19:53)
--- NOTE | 2019-02-21 15:19 | Progress Note ---
Assessment and Plan 33 yo F with 1. acute cholecystitis 2. choledocolithiasis Plan; 1. ERCP today 2. repeat Lfts, Bili, lipase in am 3. If labs improving, will schedule for cholecystectomy 4. NPO p MN 5. IVF 6. IV abx 7. prn pain and nausea control Thank you, please call with questions. Subjective Date of service: 02/21/19 Narrative: Pt seen and examined. c/o abdominal pain. No n/v, f/c Objective Vital Signs - 12hr 02/21/19 02/21/19 02/21/19 04:36 07:39 12:36 Temperature 98.6 F 98.6 F 98.9 F Pulse Rate 57 L 75 57 L Respiratory 16 18 18 Rate Blood Pressure 135/81 124/74 135/82 O2 Sat by Pulse 97 95 94 Oximetry 02/21/19 02/21/19 14:47 14:50 Temperature 98.9 F 98.9 F Pulse Rate 73 73 Respiratory 10 L 10 L Rate Blood Pressure 137/91 137/91 O2 Sat by Pulse 96 96 Oximetry - General physical appearance Narrative Exam: Gen: AAOx3 NAD CV: S1, S2+ Resp: even and unlabored Abd: soft, RUQ TTP Ext: no c/c/e - Labs 02/20/19 04:15 02/21/19 08:06 Diabetes panel 02/21/19 Range/Units 08:06 Sodium 137 (137-145) mmol/L Potassium 3.6 (3.6-5.0) mmol/L Chloride 103.2 (98-107) mmol/L Carbon Dioxide 22 (22-30) mmol/L BUN 9 (7-17) mg/dL Creatinine 0.7 (0.7-1.2) mg/dL Glucose 130 H (65-100) mg/dL Calcium 8.4 (8.4-10.2) mg/dL AST 91 H (5-40) units/L ALT 255 H (7-56) units/L Alkaline Phosphatase 201 H (35-129) units/L Total Protein 6.6 (6.3-8.2) g/dL Albumin 3.6 L (3.9-5) g/dL Calcium panel 02/21/19 Range/Units 08:06 Calcium 8.4 (8.4-10.2) mg/dL Albumin 3.6 L (3.9-5) g/dL Pituitary panel 02/21/19 Range/Units 08:06 Sodium 137 (137-145) mmol/L Potassium 3.6 (3.6-5.0) mmol/L Chloride 103.2 (98-107) mmol/L Carbon Dioxide 22 (22-30) mmol/L BUN 9 (7-17) mg/dL Creatinine 0.7 (0.7-1.2) mg/dL Glucose 130 H (65-100) mg/dL Calcium 8.4 (8.4-10.2) mg/dL Adrenal panel 02/21/19 Range/Units 08:06 Sodium 137 (137-145) mmol/L Potassium 3.6 (3.6-5.0) mmol/L Chloride 103.2 (98-107) mmol/L Carbon Dioxide 22 (22-30) mmol/L BUN 9 (7-17) mg/dL Creatinine 0.7 (0.7-1.2) mg/dL Glucose 130 H (65-100) mg/dL Calcium 8.4 (8.4-10.2) mg/dL Total Bilirubin 4.70 H (0.1-1.2) mg/dL AST 91 H (5-40) units/L ALT 255 H (7-56) units/L Alkaline Phosphatase 201 H (35-129) units/L Total Protein 6.6 (6.3-8.2) g/dL Albumin 3.6 L (3.9-5) g/dL
[2019-02-21] MEDS ORDERED: NACL 0.9% 100 ML ONE (15:42)
[2019-02-21] MEDS ORDERED: VERSED ONE (15:47)
[2019-02-21] MEDS ORDERED: DILAUDID ONE (15:47)
[2019-02-21] MEDS ORDERED: DIPRIVAN 10 MG/ML IV ONE ×2 (15:47→16:19)
[2019-02-21] MEDS ORDERED: GLUCAGEN IV ONE (16:20)
[2019-02-21] MEDS ORDERED: GLUCAGEN ONE (16:20)
[2019-02-21] MEDS ORDERED: XYLOCAINE MPF 2% ONE (16:35)
[2019-02-21] MEDS ORDERED: ZOFRAN ONE (16:35)
--- NOTE | 2019-02-21 17:52 | Post Operative Note ---
Pre-op diagnosis: choledocholithiasis Post-op diagnosis: same Findings: ERCP: nl ampullae - nl pancreatogram - cholangiogram w/ filling defect - sphinterotomy performed - medium stone removed - negative other Procedure: ERCP w/ stone removal Anesthesia: MAC Surgeon: SERGIO NOVAK Estimated blood loss: none Pathology: list Specimen disposition: to lab Condition: stable Disposition: floor
--- NOTE | 2019-02-21 18:22 | Operative Report ---
PROCEDURE PERFORMED: ERCP with sphincterotomy and stone extraction. INDICATIONS: 1. Choledocholithiasis. 2. Increased liver function tests. MEDICATIONS: Propofol per HELP DESK CONSULTANT. COMPLICATIONS: None. DESCRIPTION OF PROCEDURE: The patient was brought to the procedure suite. The patient had the procedure discussed with her at length. All risks, complications, and benefits were discussed, after which the patient signed for the procedure to be performed. The patient was placed in left lateral decubitus position. Mouth block placed in the patient's oral cavity. After adequate sedation medication as above, endoscope placed in the mouth and brought to the level of the second portion of duodenum. Retroflexion was performed. The patient's vital signs remained stable throughout the procedure. FINDINGS: There was noted to be normal-appearing esophagus and stomach. The ampulla was noted in the second portion of duodenum and appeared normal. A sphincterotome was then inserted and pancreatogram performed. Pancreatogram showed a normal-appearing pancreatic duct. Cholangiogram showed approximately 8-mm filling defect in the mid to distal common bile duct. The common bile duct itself was approximately 9-10 mm. A medium sphincterotomy was performed. A 9-12 mm balloon was then used to remove a medium stone from the common bile duct. No other stones or sludge or debris were noted. Occlusion cholangiogram showed no other filling defects. The patient tolerated the procedure well. No complications during the procedure. IMPRESSION: 1. Normal-appearing esophagus and stomach. 2. Normal ampulla. 3. Normal pancreatogram. 4. Cholangiogram with slightly dilated common bile duct with a single filling defect. 5. Sphincterotomy performed. 6. Stone x 1 removed. RECOMMENDATIONS: 1. Follow labs. 2. Clear liquid diet. 3. Avoid NSAIDs and aspirin. 4. Surgery followup for consideration of laparoscopic cholecystectomy. 5. We will follow up in a.m. JOB# [id number] [facility]/NTS
[2019-02-21] MEDS: REGLAN IV PRN (19:37)
[2019-02-22] MEDS: DILAUDID IV PRN ×4 (04:17→23:06)
[2019-02-22 04:57] LABS: Hematocrit 36.3 % (30.3-42.9); Hemoglobin 12.8 gm/dl (10.1-14.3); Mean Corpuscular HGB Conc 35 % (30-34); Mean Corpuscular Volume 88 fl (79-97); Platelet Count 238 K/mm3 (140-440); Red Blood Count 4.11 M/mm3 (3.65-5.03); Red Cell Distribution Width 12.3 % (13.2-15.2)
[2019-02-22 05:17] LABS: Alanine Aminotransferase 244 units/L (7-56); Albumin 3.8 g/dL (3.9-5); BUN/Creatinine Ratio 13; Blood Urea Nitrogen 9 mg/dL (7-17); Calcium 8.8 mg/dL (8.4-10.2); Hemolysis Index 3
[2019-02-22] MEDS: ZOSYN/NS 4.5GM/100ML 4.5 GM/100 ML VIAL IV SCH ×3 (06:12→21:46)
[2019-02-22] MEDS: PEPCID IV SCH ×2 (09:54→21:45)
[2019-02-22] MEDS: LOVENOX SUB-Q SCH (09:54)
[2019-02-22] MEDS: ZOFRAN IV PRN ×2 (10:00→13:56)
[2019-02-22] MEDS: SODIUM CHLORIDE FLUSH SYRINGE 10 ML IV SCH ×2 (10:00→23:15)
--- NOTE | 2019-02-22 10:37 | Gastroenterology Progress Note ---
Assessment and Plan 1. Biliary obstruction 2/2 CBD stone - s/p ERCP with sphincterotomy and stone removal -liver enzymes unchanged since procedure. surgery on hold until improvement in labs; no worsening gi symptoms since ercp. hopefully labs will be improved tomorrow. Subjective Date of service: 02/22/19 Principal diagnosis: CBD stone/abd pain Interval history: pt s/p ercp yesterday; no new gi complaints, continues to have abd pain but not worse after procedure. denies n/v; tolerating clears. no fevers/chills Objective - Constitutional Vitals: Temp Pulse Resp BP Pulse Ox 98.8 F 65 18 140/78 95 02/22/19 07:50 02/22/19 07:50 02/22/19 07:50 02/22/19 07:50 02/22/19 07:50 General appearance: no acute distress - Respiratory Respiratory effort: normal Respiratory: bilateral: CTA - Cardiovascular Rhythm: regular Heart Sounds: Present: S1 & S2 - Gastrointestinal General gastrointestinal: Present: soft, tender (epigastric/ruq ttp), non- distended - Neurologic Neurological: alert and oriented x3 - Labs CBC & Chem 7: 02/22/19 04:23 02/22/19 04:23 Labs: Laboratory Results - last 24 hr 02/22/19 02/22/19 04:23 04:23 WBC 8.2 RBC 4.11 Hgb 12.8 Hct 36.3 MCV 88 MCH 31 MCHC 35 H RDW 12.3 L Plt Count 238 Sodium 136 L Potassium 3.6 Chloride 99.9 Carbon Dioxide 20 L Anion Gap 20 BUN 9 Creatinine 0.7 Estimated GFR > 60 BUN/Creatinine Ratio 13 Glucose 100 Calcium 8.8 Total Bilirubin 4.90 H AST 98 H ALT 244 H Alkaline Phosphatase 212 H Total Protein 6.9 Albumin 3.8 L Albumin/Globulin Ratio 1.2 Lipase 188 H
--- NOTE | 2019-02-22 11:26 | Progress Note ---
Assessment and Plan Assessment and plan: Acute cholecystitis Cont Zosyn GI following. s/p. ERCP 02/21/19 with sphinterotomy and stone removed LFT, Bilirubin not improved Discussed with Dr. Howell, patient and family at bedside Surgeon following Obesity. I counseled on diet and exercise Full code status History Interval history: RUQ abd pain still presenty No fever Hospitalist Physical - Physical exam Narrative exam: Gen: Not in acute distress, lying in bed, HEENT: Normocephalic, atraumatic Neck: supple, no JVD Heart: S1 and S2 reg, no murmurs, rubs or gallop Lungs: Clear, no crackles, no wheeze Abd: soft, tender RUQ, no rebound, non distended, normal BS Ext: No edema, no clubbing, no cyanosis, Neuro: Awake,alert, oriented x 3, moves all ext, non focal Psych:Normal mood - Constitutional Vitals: Temp Pulse Resp BP Pulse Ox 98.8 F 65 18 140/78 95 02/22/19 07:50 02/22/19 07:50 02/22/19 07:50 02/22/19 07:50 02/22/19 07:50 Results - Labs CBC & Chem 7: 02/22/19 04:23 02/23/19 04:06 Labs: Laboratory Last Values WBC 8.2 K/mm3 (4.5-11.0) 02/22/19 04:23 RBC 4.11 M/mm3 (3.65-5.03) 02/22/19 04:23 Hgb 12.8 gm/dl (10.1-14.3) 02/22/19 04:23 Hct 36.3 % (30.3-42.9) 02/22/19 04:23 MCV 88 fl (79-97) 02/22/19 04:23 MCH 31 pg (28-32) 02/22/19 04:23 MCHC 35 % (30-34) H 02/22/19 04:23 RDW 12.3 % (13.2-15.2) L 02/22/19 04:23 Plt Count 238 K/mm3 (140-440) 02/22/19 04:23 Lymph % (Auto) 19.2 % (13.4-35.0) 02/20/19 04:15 [place] % (Auto) 9.4 % (0.0-7.3) H 02/20/19 04:15 Eos % (Auto) 3.1 % (0.0-4.3) 02/20/19 04:15 Baso % (Auto) 0.4 % (0.0-1.8) 02/20/19 04:15 Lymph # 1.5 K/mm3 (1.2-5.4) 02/20/19 04:15 [place] # 0.8 K/mm3 (0.0-0.8) 02/20/19 04:15 Eos # 0.3 K/mm3 (0.0-0.4) 02/20/19 04:15 Baso # 0.0 K/mm3 (0.0-0.1) 02/20/19 04:15 Seg Neutrophils % 67.9 % (40.0-70.0) 02/20/19 04:15 Seg Neutrophils # 5.5 K/mm3 (1.8-7.7) 02/20/19 04:15 Sodium 136 mmol/L (137-145) L 02/22/19 04:23 Potassium 3.6 mmol/L (3.6-5.0) 02/22/19 04:23 Chloride 99.9 mmol/L (98-107) 02/22/19 04:23 Carbon Dioxide 20 mmol/L (22-30) L 02/22/19 04:23 20 mmol/L 02/22/19 04:23 BUN 9 mg/dL (7-17) 02/22/19 04:23 0.7 mg/dL (0.7-1.2) 02/22/19 04:23 Estimated GFR > 60 ml/min 02/22/19 04:23 13 % 02/22/19 04:23 Glucose 100 mg/dL (65-100) 02/22/19 04:23 5.6 % (4-6) 02/19/19 20:24 Calcium 8.8 mg/dL (8.4-10.2) 02/22/19 04:23 4.90 mg/dL (0.1-1.2) H 02/22/19 04:23 4.7 mg/dL (0-0.2) H 02/19/19 15:24 1.1 mg/dL 02/19/19 15:24 AST 98 units/L (5-40) H 02/22/19 04:23 ALT 244 units/L (7-56) H 02/22/19 04:23 212 units/L (35-129) H 02/22/19 04:23 6.9 g/dL (6.3-8.2) 02/22/19 04:23 3.8 g/dL (3.9-5) L 02/22/19 04:23 1.2 % 02/22/19 04:23 188 units/L (13-60) H 02/22/19 04:23 HCG, Qual Negative (Negative) 02/19/19 15:24 Rosalba (Yellow) 02/20/19 05:10 Clear (Clear) 02/20/19 05:10 5.0 (5.0-7.0) 02/20/19 05:10 Ur Specific [place] 1.016 (1.003-1.030) 02/20/19 05:10 <15 mg/dl mg/dL (Negative) 02/20/19 05:10 Neg mg/dL (Negative) 02/20/19 05:10 20 mg/dL (Negative) 02/20/19 05:10 Neg (Negative) 02/20/19 05:10 Neg (Negative) 02/20/19 05:10 Neg (Negative) 02/20/19 05:10 < 2.0 mg/dL (<2.0) 02/20/19 05:10 Ur Leukocyte Esterase Neg (Negative) 02/20/19 05:10 1.0 /HPF (0.0-6.0) 02/20/19 05:10 2.0 /HPF (0.0-6.0) 02/20/19 05:10 U Epithel Cells (Auto) 6.0 /HPF (0-13.0) 02/20/19 05:10 Few /HPF 02/20/19 05:10 Active Medications - Current Medications Current Medications: Generic Name Dose Route Start Last Admin Trade Name Freq PRN Reason Stop Dose Admin Acetaminophen 650 mg 02/19/19 21:00 Tylenol PO Q4H PRN Pain MILD(1-3)/Fever >100.5/FERGUSON Enoxaparin Sodium 40 mg 02/20/19 10:00 02/22/19 09:54 Lovenox SUB-Q 40 mg QDAY LAYLA Administration Famotidine 20 mg 02/19/19 22:00 02/22/19 09:54 Pepcid IV 20 mg BID LAYLA Administration Hydromorphone HCl 0.5 mg 02/19/19 21:00 02/22/19 09:59 Dilaudid IV 0.5 mg Q3H PRN Administration Pain , Severe (7-10) Piperacillin Sod/Tazobactam Sod 4.5 gm in 100 mls @ 200 mls/hr 02/19/19 22:00 02/22/19 06:12 Zosyn/Ns 4.5gm/100ml IV 200 mls/hr Q8HR LAYLA Administration Protocol Sodium Chloride 1,000 mls @ 50 mls/hr 02/21/19 12:00 02/21/19 19:53 Nacl 0.9% 1000 Ml IV 50 mls/hr DIRECT LAYLA Administration Metoclopramide HCl 10 mg 02/19/19 20:09 02/21/19 19:37 Reglan IV 10 mg Q6H PRN Administration Nausea And Vomiting Ondansetron HCl 4 mg 02/19/19 21:00 02/22/19 10:00 Zofran IV 4 mg Q3H PRN Administration Nausea And Vomiting Sodium Chloride 10 ml 02/19/19 22:00 02/22/19 10:00 Sodium Chloride Flush Syringe 10 Ml IV 10 ml BID LAYLA Administration Sodium Chloride 10 ml 02/19/19 20:09 Sodium Chloride Flush Syringe 10 Ml IV PRN PRN LINE FLUSH
--- NOTE | 2019-02-22 12:50 | Progress Note ---
Assessment and Plan 33 yo F with 1. acute cholecystitis 2. choledocolithiasis s/p ERCP 02/21/19 Plan; 1. Clear liquid diet 2. Lfts, Bili not improved - repeat in am 3. If labs improving, will schedule for cholecystectomy 4. NPO p MN 5. IVF 6. IV abx 7. prn pain and nausea control Discussed plan with patient and family at bedside. D/W Dr. Rivas Thank you, please call with questions. Subjective Date of service: 02/22/19 Narrative: Pt seen and examined. States abdominal pain is slightly better. No f/c, cp, sob, n/v. Tolerating clear liquids. Objective Vital Signs - 12hr 02/22/19 02/22/19 02/22/19 04:02 07:50 11:00 Temperature 99.0 F 98.8 F 98.2 F Pulse Rate 71 65 75 Respiratory 18 18 18 Rate Blood Pressure 109/71 Blood Pressure 140/78 124/74 [Left] O2 Sat by Pulse 97 95 96 Oximetry - General physical appearance Narrative Exam: Gen; AAOx3. NAD CV: s1, S2+ Resp: even and unlabored Abd: soft, ND, epigastric TTP. no r/r/g Ext: no c/c/e - Labs 02/22/19 04:23 02/22/19 04:23 Diabetes panel 02/22/19 Range/Units 04:23 Sodium 136 L (137-145) mmol/L Potassium 3.6 (3.6-5.0) mmol/L Chloride 99.9 (98-107) mmol/L Carbon Dioxide 20 L (22-30) mmol/L BUN 9 (7-17) mg/dL Creatinine 0.7 (0.7-1.2) mg/dL Glucose 100 (65-100) mg/dL Calcium 8.8 (8.4-10.2) mg/dL AST 98 H (5-40) units/L ALT 244 H (7-56) units/L Alkaline Phosphatase 212 H (35-129) units/L Total Protein 6.9 (6.3-8.2) g/dL Albumin 3.8 L (3.9-5) g/dL Calcium panel 02/22/19 Range/Units 04:23 Calcium 8.8 (8.4-10.2) mg/dL Albumin 3.8 L (3.9-5) g/dL Pituitary panel 02/22/19 Range/Units 04:23 Sodium 136 L (137-145) mmol/L Potassium 3.6 (3.6-5.0) mmol/L Chloride 99.9 (98-107) mmol/L Carbon Dioxide 20 L (22-30) mmol/L BUN 9 (7-17) mg/dL Creatinine 0.7 (0.7-1.2) mg/dL Glucose 100 (65-100) mg/dL Calcium 8.8 (8.4-10.2) mg/dL Adrenal panel 02/22/19 Range/Units 04:23 Sodium 136 L (137-145) mmol/L Potassium 3.6 (3.6-5.0) mmol/L Chloride 99.9 (98-107) mmol/L Carbon Dioxide 20 L (22-30) mmol/L BUN 9 (7-17) mg/dL Creatinine 0.7 (0.7-1.2) mg/dL Glucose 100 (65-100) mg/dL Calcium 8.8 (8.4-10.2) mg/dL Total Bilirubin 4.90 H (0.1-1.2) mg/dL AST 98 H (5-40) units/L ALT 244 H (7-56) units/L Alkaline Phosphatase 212 H (35-129) units/L Total Protein 6.9 (6.3-8.2) g/dL Albumin 3.8 L (3.9-5) g/dL
[2019-02-22] MEDS: NACL 0.9% 1000 ML 1,000 ML IV SCH (23:15)
[2019-02-23 04:54] LABS: Alanine Aminotransferase 205 units/L (7-56); Albumin 3.7 g/dL (3.9-5); BUN/Creatinine Ratio 13; Blood Urea Nitrogen 10 mg/dL (7-17); Hemolysis Index 0
[2019-02-23] MEDS: ZOSYN/NS 4.5GM/100ML 4.5 GM/100 ML VIAL IV SCH (05:59)
[2019-02-23] MEDS: PEPCID IV SCH (07:15)
[2019-02-23] MEDS ORDERED: DILAUDID ONE ×3 (09:48→13:15)
[2019-02-23] MEDS ORDERED: DIPRIVAN 10 MG/ML IV ONE ×2 (09:48→11:54)
[2019-02-23] MEDS ORDERED: XYLOCAINE MPF 2% ONE (09:49)
[2019-02-23] MEDS ORDERED: ZEMURON IV ONE (09:49)
[2019-02-23] MEDS ORDERED: NEURONTIN PO SCH (09:51)
[2019-02-23] MEDS ORDERED: TYLENOL PO ONE (09:52)
[2019-02-23] MEDS: SODIUM CHLORIDE FLUSH SYRINGE 10 ML IV SCH (09:54)
--- NOTE | 2019-02-23 09:55 | Anesthesia Day of Surgery ---
Anesthesia Day of Surgery - Day of Surgery Patient Examined: Yes Patient H&P Reviewed: Yes Patient is NPO: Yes (9pm on 02/22) Beta Blockers: No Cardiac Clearance: No Pulmonary Clearance: No Ridge's Test: N/A
[2019-02-23] MEDS ORDERED: SUBLIMAZE IV PRN (09:56)
[2019-02-23] MEDS ORDERED: DEMEROL IV PRN (09:56)
[2019-02-23] MEDS ORDERED: ZOFRAN IV PRN (09:56)
[2019-02-23] MEDS ORDERED: NARCAN 0.4 MG/1 ML IV PRN (09:56)
[2019-02-23] MEDS ORDERED: TORADOL IV PRN (09:56)
--- NOTE | 2019-02-23 09:56 | Anesthesia Consultation ---
Anesthesia Consult and Med Hx Date of service: 02/23/19 - Airway Anesthetic Teeth Evaluation: Good ROM Head & Neck: Adequate Mental/Hyoid Distance: Adequate Mallampati Class: Class I Intubation Access Assessment: Good - Pulmonary Exam CTA: Yes - Cardiac Exam Cardiac Exam: RRR - Pre-Operative Health Status ASA Pre-Surgery Classification: ASA2 Proposed Anesthetic Plan: General - Pulmonary Hx Asthma: No COPD: No Hx Pneumonia: No - Central Nervous System Hx Psychiatric Problems: No - Endocrine Hx End Stage Renal Disease: No Hx Liver Disease: Yes (gallbladder stones, cholecholithiasis) - Other Systems Hx Obesity: Yes (BMI 34.1) - Additional Comments Anesthesia Medical History Comments: multimodal analgesia with acetaminophen, gabapentin, and famotidine (given on the floor) prior to coming to OR
--- NOTE | 2019-02-23 09:59 | Anesthesia Day of Surgery ---
Anesthesia Day of Surgery - Day of Surgery Patient Examined: Yes Patient H&P Reviewed: Yes Patient is NPO: Yes Beta Blockers: No Cardiac Clearance: No Pulmonary Clearance: No Ridge's Test: N/A
[2019-02-23] MEDS ORDERED: MARCAINE 0.5% INFILTRATI ONE ×2 (10:02→11:04)
[2019-02-23] MEDS ORDERED: XYLOCAINE 1% 20 mL ONE (10:02)
[2019-02-23] MEDS ORDERED: VERSED ONE (10:20)
--- NOTE | 2019-02-23 10:28 | Gastroenterology Progress Note ---
Assessment and Plan Choledocolithiasis - s/p ERCP with sphincterotomy/stone extraction. labs improved today. Cholecystitis - pt to OR today for CCY per surgery will sign off, please call as needed. Subjective Date of service: 02/23/19 Principal diagnosis: CBD stone/abd pain Interval history: pt planned for OR/ccy today. no new or worsening symptoms. Objective - Constitutional Vitals: Temp Pulse Resp BP Pulse Ox 99 F 71 18 138/78 96 02/23/19 07:00 02/23/19 07:10 02/23/19 07:00 02/23/19 07:00 02/23/19 07:10 General appearance: no acute distress - Respiratory Respiratory effort: normal Respiratory: bilateral: CTA - Cardiovascular Rhythm: regular Heart Sounds: Present: S1 & S2 - Gastrointestinal General gastrointestinal: Present: soft, non-tender, non-distended - Neurologic Neurological: alert and oriented x3 - Labs CBC & Chem 7: 02/22/19 04:23 02/23/19 04:06 Labs: Laboratory Results - last 24 hr 02/23/19 04:06 Sodium 138 Potassium 3.8 Chloride 100.2 Carbon Dioxide 24 Anion Gap 18 BUN 10 Creatinine 0.8 Estimated GFR > 60 BUN/Creatinine Ratio 13 Glucose 103 H Calcium 9.0 Total Bilirubin 2.20 H AST 77 H ALT 205 H Alkaline Phosphatase 185 H Total Protein 6.8 Albumin 3.7 L Albumin/Globulin Ratio 1.2 Lipase 66 H
[2019-02-23] MEDS ORDERED: XYLOCAINE 1% 20 mL INFILTRATI ONE (11:04)
[2019-02-23] MEDS ORDERED: LACTATED RINGERS 1,000 ML ONE ×2 (11:08→12:20)
[2019-02-23] MEDS ORDERED: ZOFRAN ONE (12:20)
[2019-02-23] MEDS ORDERED: PERCOCET 5/325 PO PRN (12:22)
--- NOTE | 2019-02-23 12:22 | Post Operative Note ---
Date of procedure: 02/23/19 Pre-op diagnosis: acute cholecystitis, choledocolithiasis Post-op diagnosis: same Findings: thickened gallbladder wall and gallbladder filled with stones Procedure: robotic assisted cholecystectomy Anesthesia: CARENA, local Surgeon: JL KO [employer] Teacher: VICENTE CASTRO Estimated blood loss: minimal Pathology: list (gallbladder) Specimen disposition: to lab Condition: stable Disposition: PACU
[2019-02-23] MEDS: DILAUDID IV PRN ×2 (12:48→13:15)
[2019-02-23] MEDS ORDERED: TORADOL ONE (12:53)
[2019-02-23 14:06] VITALS: BP 143/86
--- NOTE | 2019-02-23 14:25 | Discharge Summary ---
Providers - Providers Date of Admission: 02/19/19 20:09 Date of discharge: 02/23/19 Attending physician: SCOTT HURTADO 02/19/19 16:55 Consult to Physician [CONS] Stat Comment: Consulting Provider: JL KO Physician Instructions: Reason For Exam: acute cholecystitis 02/19/19 20:09 Consult to Physician [CONS] Routine Comment: Consulting Provider: MARY POWERS Physician Instructions: Reason For Exam: cholecystitis 02/20/19 08:32 Consult to Physician [CONS] Routine Comment: CONSULT COMPLETED - EBEN Consulting Provider: SERGIO CRUZ Physician Instructions: Reason For Exam: acute cholecystitis [facility] Condition: Fair Hospital course: Patient is 33 yo presented with RUQ abd pain. She was seen and evaluated in ED and diagnosed with acute cholecystitis. She was started on iv fluids, Zosyn iv and admitted. MRCP revealed cholelithiasis, choledocholithiasis. Surgery and GI physician were consulted. GI Physician did ERCP 02/21/19 with sphinterotomy and stone removal. Post procedure, Bilirubin improved and robotic assisted cholecystectomy was done by Dr. Ko on 02/23/19 and she was discharged home same day. Total time spent on discharge, 33 mins Disposition: DC- TO HOME OR SELFCARE - Discharge Diagnoses (1) Cholecystitis Status: Acute (2) Choledocholithiasis with acute cholecystitis Status: Acute (3) Common bile duct dilatation Status: Acute (4) Obesity (BMI 30.0-34.9) Status: Acute Core Measure Documentation - Palliative Care Palliative Care/ Comfort Measures: Not Applicable - Core Measures Any of the following diagnoses?: none Exam - Physical Exam Narrative exam: Gen: Not in acute distress, lying in bed, HEENT: Normocephalic, atraumatic Neck: supple, no JVD Heart: S1 and S2 reg, no murmurs, rubs or gallop Lungs: Clear, no crackles, no wheeze Abd: soft, tender RUQ, no rebound, non distended, normal BS Ext: No edema, no clubbing, no cyanosis, Neuro: Awake,alert, oriented x 3, moves all ext, non focal Psych:Normal mood - Constitutional Vitals: Temp Pulse Resp BP Pulse Ox 98.4 F 73 18 143/86 96 02/23/19 14:05 02/23/19 14:05 02/23/19 14:05 02/23/19 14:05 02/23/19 14:05 Plan Activity: advance as tolerated Diet: low fat, low cholesterol, low salt Additional Instructions: 1.Follow up with PCP or [facility] in 1 week. 2.Follow up with in 1 week. 3.Follow up with Dr. Susu Cruz in 1 week. [facility] Care [facility] - 3-5 Days Prescriptions: Amoxicillin/Potassium Clav [Augmentin 875-125 Tablet] 1 each PO BID #6 tablet oxyCODONE /ACETAMINOPHEN [Percocet 5/325] 1 tab PO Q6HR PRN #20 tablet PRN Reason: Pain
--- NOTE | 2019-02-24 08:52 | Fluoroscopy Report ---
FLUOROSCOPY ERCP BILIARY PANCREATIC DUCTS History: Biliary stone. Findings: Fluoroscopy was provided by radiology during ERCP by gastroenterology. 7 fluoroscopic images were saved. The MRCP dated 02/20/19 was reviewed. Multiple fluoroscopic images of the right upper quadrant demonstrate contrast agent within the biliary tree. Balloon sweep of the common bile duct was performed which probably remove the distal CBD stones in MRCP. The final image demonstrates no evidence for cholelithiasis and good drainage of the biliary tree. Please correlate with the procedural report as needed.
--- NOTE | 2019-02-26 14:52 | Operative Report ---
PREOPERATIVE DIAGNOSES: Acute cholecystitis, choledocholithiasis. POSTOPERATIVE DIAGNOSES: Acute cholecystitis, choledocholithiasis. FINDINGS: Thickened gallbladder wall and gallbladder filled with stones. PROCEDURE: Robotic-assisted cholecystectomy. ANESTHESIA: General endotracheal anesthesia, local. SURGEON: Lulu Howell DO EARLY CHILDHOOD COORDINATOR: Jamshid Hussein MD ESTIMATED BLOOD LOSS: Minimal. PATHOLOGY: Gallbladder. SPECIMEN DISPOSITION: To lab. CONDITION AND DISPOSITION: The patient is stable to PACU. HISTORY OF PRESENT ILLNESS AND INDICATION: The patient is a 33-year-old female who presented to the hospital with abdominal pain. She was found to have acute cholecystitis and choledocholithiasis. She underwent an ERCP with successful removal of stones and sphincterotomy, and her labs were monitored thereafter. Once her bilirubin and LFTs started to trend downward, she was scheduled for cholecystectomy. All risks, benefits, and alternatives to surgery were discussed with the patient. Consent obtained. All questions were answered. PROCEDURE IN DETAIL: The patient was identified in the preoperative area, taken back to the operating room, and placed on the operating room table in supine position. After anesthesia was induced, the abdomen was prepped and draped in the usual sterile fashion. A timeout was performed. Local anesthetic was infiltrated into all skin incision sites. A 12 mm incision was made at the umbilicus through which a Veress needle was inserted. The Veress needle position was confirmed using a saline drop test. Once the abdomen was insufflated to 15 mmHg, the Veress needle was removed and a 12 mm Optiview trocar placed through this incision. The abdomen was inspected. There was no underlying injury to any of the abdominal structures. The patient was placed in reverse Trendelenburg and tilted to the left. An additional 8 mm left upper quadrant trocar was placed under direct visualization and two 8 mm robotic trocars, one in the right mid abdomen and one in the right lateral abdomen under direct visualization. The gallbladder was visualized and appeared thickened, and filled with bile. The robot was then docked with Monopolar hook in arm #1, a Cadiere grasper in arm #2, and ProGrasp in arm #3. The surgeon was then transferred to the console. The gallbladder fundus was grasped and retracted cephalad and above the liver. The infundibulum was retracted laterally and the gallbladder neck identified. The fatty tissue and peritoneum overlying the lateral and medial aspect of the gallbladder was incised using the hook and the cystic duct and artery were then carefully skeletonized. Once the critical view was obtained and cystic duct and artery were seen as the only two structures entering the gallbladder. Clips were applied. Weck self-locking clips were placed, two on the proximal aspect of the cystic duct and 1 distally and 1 on the proximal aspect of the cystic artery and 1 distally. The duct and artery were then transected in between the clips by the inside sales assistant surgeon using EndoShears. The gallbladder was then transected off the liver bed using hook electrocautery and placed in the right upper abdomen. The liver bed and the gallbladder fossa were then inspected for bleeding or bile leakage. There was none seen. The clips were identified and intact. The robot was then undocked and the surgeon scrubbed back in, and the remainder of the procedure performed laparoscopically. The gallbladder was placed into an EndoCatch bag and removed via the 12 mm port. The Ray-Sharri was also removed via the 12 mm port. The gallbladder was passed off the table as specimen. The 12 mm port fascia was closed with running 0 Vicryl suture. The remainder of the ports were then removed under direct visualization and the abdomen was fully desufflated. Skin incisions were once again infiltrated with local anesthetic and the skin incisions closed with 4-0 Monocryl subcuticular stitches and skin glue. The patient was awoken from anesthesia and extubated, and taken to PACU in stable condition. At the end of the case, all sponge, instrument, sharp counts were correct x 2. JOB# [id number] NITA/MARIA M SEGURA
== END 2019-02-23 18:54 | disposition home or self-care (01) | DRG 419 ==
LOC: ED 15:08 → 3B-SURG 20:09
PROVIDERS: ADMIT Internal Medicine; ATTEND Internal Medicine
PROC: 0FC98ZZ Extirpation of Matter from Common Bile Duct, Via Natural or Artificial Opening Endoscopic (ICD-10-PCS; 2019-02-21)
PROC: BF111ZZ Fluoroscopy of Biliary and Pancreatic Ducts using Low Osmolar Contrast (ICD-10-PCS; 2019-02-21)
PROC: 0FT44ZZ Resection of Gallbladder, Percutaneous Endoscopic Approach (ICD-10-PCS; principal; 2019-02-23)
PROC: 8E0W4CZ Robotic Assisted Procedure of Trunk Region, Percutaneous Endoscopic Approach (ICD-10-PCS; 2019-02-23)
DX: K80.63 Calculus of gallbladder and bile duct with acute cholecystitis with obstruction (principal); E80.6 Other disorders of bilirubin metabolism; E66.9 Obesity, unspecified; Z82.49 Family history of ischemic heart disease and other diseases of the circulatory system; Z68.34 Body mass index [BMI] 34.0-34.9, adult; Z71.3 Dietary counseling and surveillance
CPT/HCPCS: 36415; 74181; 74330; 80048; 80053; 80076; 81001; 83036; 83690; 84703; 85025; 85027; 88304; G0378; C1726; J1170; J1610; J1650; J1885; J2250; J2270; J2405; J2543; J2704; J2765; J7030; J7042; J7120; Q9967